=== PATIENT | female | born 1970 | race Caucasian/White ===

== ENCOUNTER 2021-10-01 14:48 | Emergency (ER) | payer OTHER ==
[2021-10-01 15:00] VITALS: BP 140/125
--- NOTE | 2021-10-01 15:27 | ED Physician Documentation ---
History of Present Illness - Stated complaint Stated Complaint: DIZZY,NUMBNESS,COUGH - Chief complaint Chief Complaint: Cardiac - Additonal information Additional information: 51-year-old female presents to the emergency department for evaluation of what she describes as a chronic cough that has been ongoing for 2-3 months as well as 'angina." She states that she has frequent substernal chest pain that radiates to her left arm and causes left arm numbness. She reports that about 5 years ago she had a stress test when in [place] but does not result know the results however she believes that it did not show anything wrong. Patient reports that she has a productive cough. Unsure if it is worse at night or when laying flat. She does not have any fevers. No pleuritic component. denies fevers, congestion. Patient is quite anxious appearing. She declines to answer whether she is vaccinated for COVID-19. She states that she is "healthy as a horse." Has no history of high blood pressure or diabetes and takes no routinely prescribed medications. She also states that her lower legs/feet have been swollen for many months. She reports her primary doctor is in [facility] but she is never seen her. Review of Systems Constitutional: denies: Fever, Chills, Myalgias Eyes: reports: Reviewed and negative Ears: reports: Reviewed and negative Nose: denies: Congestion Throat: reports: Reviewed and negative Cardiac: reports: Chest pain / pressure, Pedal edema. denies: Palpitations, Calf pain Respiratory: reports: Cough. denies: Dyspnea, Hemoptysis, Wheezing GI: reports: Abdominal Pain, Reviewed and negative : reports: Reviewed and negative Skin: reports: Reviewed and negative Musculoskeletal: reports: Reviewed and negative Neurologic: reports: Numbness PD PAST MEDICAL HISTORY - Allergies Allergies/Adverse Reactions: Allergies Allergy/AdvReac Type Severity Reaction Status Date / Time No Known Drug Allergies Allergy Verified 10/01/21 15:00 PD ED PE NORMAL - General General: Alert and oriented X 3, No acute distress, Well developed/nourished - HEENT HEENT: Atraumatic, Ears normal, Moist mucous membranes, Pharynx benign - Neck Neck: Supple, no meningeal sign, No adenopathy - Cardiac Cardiac: RRR, No murmur, Strong equal pulses, Other (Mild bilateral pedal edema.) - Respiratory Respiratory: No respiratory distress, Clear bilaterally - Abdomen Abdomen: Normal bowel sounds, Soft, Non tender - Back Back: No CVA TTP, No spinal TTP - Derm Derm: Normal color, Warm and dry, No rash - Extremities Extremities: No deformity, No tenderness to palpate, Normal ROM s pain - Neuro Neuro: Alert and oriented X 3, 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 No: Prolonged QT QRS: Low voltage Ischemia: Q waves (V3-5) Compare to prior EKG: Old EKG unavailable Computer interpretation: Agree with computer - Labs Labs: Laboratory Tests 10/01/21 10/01/21 10/01/21 15:30 15:30 15:30 WBC 7.2 RBC 4.57 Hgb 13.8 Hct 41.1 MCV 89.9 MCH 30.2 MCHC 33.6 RDW 13.0 Plt Count 201 MPV 10.1 Neut # (Auto) 3.9 Lymph # (Auto) 2.6 [place] # (Auto) 0.6 Eos # (Auto) 0.1 Baso # (Auto) 0.1 Absolute Nucleated RBC 0.00 Nucleated RBC % 0.0 Sodium 136 Potassium 3.8 Chloride 103 Carbon Dioxide 23 Anion Gap 10.0 BUN 14 Creatinine 0.6 Estimated GFR (MDRD) 105 Glucose 120 H Calcium 9.6 Total Bilirubin 1.0 AST 21 ALT 17 Alkaline Phosphatase 42 Troponin I High Sens 2.5 B-Natriuretic Peptide Total Protein 7.6 Albumin 4.3 Globulin 3.3 Albumin/Globulin Ratio 1.3 Lipase 43 10/01/21 15:30 WBC RBC Hgb Hct MCV MCH MCHC RDW Plt Count MPV Neut # (Auto) Lymph # (Auto) [place] # (Auto) Eos # (Auto) Baso # (Auto) Absolute Nucleated RBC Nucleated RBC % Sodium Potassium Chloride Carbon Dioxide Anion Gap BUN Creatinine Estimated GFR (MDRD) Glucose Calcium Total Bilirubin AST ALT Alkaline Phosphatase Troponin I High Sens B-Natriuretic Peptide 12 Total Protein Albumin Globulin Albumin/Globulin Ratio Lipase - Rads (name of study) cxr Radiology: Final report received (No acute cardiopulmonary process) PD MEDICAL DECISION MAKING - ED course Complexity details: reviewed results, re-evaluated patient, d/w patient ED course: 51-year-old female presents emergency department for evaluation of substernal chest pain with radiation to the left arm that is been ongoing for a number of days as well as a productive cough for 2 to 3 months. She is also reporting feeling dizzy. However no fainting spells. No headache. No focal weakness. She states that the symptoms have been ongoing for a few months since she was seen at [facility]. Patient D. Clines to answer whether or not she has vaccinated for COVID-19. She does report that she had 2 stress tests for angina when she was in [place]. Uncertain of the results. Today she presents to the ER quite anxious appearing. However cardiopulmonary auscultation is unrevealing. No crackles or wheeze. Room air saturations are 100%. Screening EKG is nonischemic. There are Q waves in the anterior leads. No previous for comparison. She is noted to have very mild pedal edema bilaterally. Screening labs showed no worrisome findings. No anemia. Her troponin and BNP are also negative. Heart score 2 Unclear the etiology of the chronic cough. I discussed with patient that postnasal drip, allergies as well as silent acid reflux could be a common contributor in the setting of a normal x-ray but she does not feel that these are likely causes. I discussed that though her EKG and troponin today are nonischemic given the history of previous stress testing she may benefit from a repeat of this in the upcoming few months. I did offer the patient albuterol inhaler but she declines to take this medication as she is not wheezing and does not want any medicines that would increase her heart rate. Emergent return precautions were discussed for worsening symptoms. Departure - Departure Disposition: 01 Home, Self Care Clinical Impression: Cough, Dizziness of unknown etiology Chest pain Qualifiers: Chest pain type: unspecified Qualified Code(s): R07.9 - Chest pain, unspecified Condition: Stable Record reviewed to determine appropriate education?: Yes Instructions: ED Chest Pain [facility] Comments: Jes you were seen today in the emergency department for cough that you have had for about 2 to 3 months, chest pain with radiation to your arm as well as dizziness. Your screening labs are essentially normal. Your BNP is not elevated. Your troponin is normal. Your EKG shows Q waves in some of the anterior leads. This can be a sign of previous heart attack. However we do not have an old EKG for comparison. With your history I do recommend you follow closely with your primary care sonia spain. You may benefit from repeat referral to a agricultural extension specialist for echocardiogram or stress test. If at any point you develop worsening symptoms, have fainting episodes or severe shortness of breath you should return immediately to the ER for a second evaluation.
[2021-10-01 15:36] LABS: BASOPHILS # (AUTO) 0.1 10^3/uL (0.0-0.1); BASOPHILS % (AUTO) 0.7 %; EOSINOPHILS # (AUTO) 0.1 10^3/uL (0.0-0.7); EOSINOPHILS % (AUTO) 1.8 %; HCT - HEMATOCRIT 41.1 % (37.0-47.0); HGB - HEMOGLOBIN 13.8 g/dL (12.0-16.0); LYMPHOCYTES # (AUTO) 2.6 10^3/uL (1.5-3.5); MEAN CORPUSCULAR HEMOGLOBIN 30.2 pg (27.0-31.0); MEAN CORPUSCULAR HGB CONC 33.6 g/dL (32.0-36.0); MEAN CORPUSCULAR VOLUME 89.9 fL (81.0-99.0); MEAN PLATELET VOLUME 10.1 fL (7.9-10.8); MONOCYTES # (AUTO) 0.6 10^3/uL (0.0-1.0); MONOCYTES % (AUTO) 7.7 %; NEUTROPHILS # (AUTO) 3.9 10^3/uL (1.5-6.6); NEUTROPHILS % (AUTO) 53.7 %; PLT - PLATELET COUNT 201 10^3/uL (130-450); RED BLOOD COUNT 4.57 10^6/uL (4.20-5.40); WHITE BLOOD COUNT 7.2 x10^3/uL (4.8-10.8)
--- NOTE | 2021-10-01 15:51 | XRAY Report ---
PROCEDURE: Chest 1 View X-Ray INDICATIONS: Chest Pain TECHNIQUE: One view of the chest was acquired. COMPARISON: None FINDINGS: Surgical changes and devices: None. Lungs and pleura: No pleural effusions or pneumothorax. Lungs are clear. Mediastinum: Mediastinal contours appear normal. Heart size is normal. Bones and chest wall: No suspicious bony lesions. Overlying soft tissues appear unremarkable. IMPRESSION: No acute process. Reviewed by: Meme Fung MD on 10/01/2021 3:49 PM PDT Approved by: Meme Fung MD on 10/01/2021 3:49 PM PDT Station ID: [id number]
[2021-10-01 15:54] LABS: ALBUMIN 4.3 g/dL (3.2-5.5); ALBUMIN/GLOBULIN RATIO 1.3 (1.0-2.2); CALCIUM 9.6 mg/dL (8.5-10.3); CREATININE 0.6 mg/dL (0.4-1.0); POTASSIUM 3.8 mmol/L (3.5-5.0); TOTAL PROTEIN 7.6 g/dL (6.7-8.2)
== END 2021-10-01 16:40 | disposition home or self-care (01) ==
LOC: ED 14:48
DX: R42 Dizziness and giddiness (principal); R05.9 Cough, unspecified
CPT/HCPCS: 36415; 80053; 83690; 83880; 84484; 85025; 93005; 99284

== ENCOUNTER 2021-10-16 11:45 | Emergency (ER) | payer OTHER ==
--- NOTE | 2021-10-16 12:28 | XRAY Report ---
PROCEDURE: Chest 1 View X-Ray INDICATIONS: Chest pain TECHNIQUE: One view of the chest was acquired. COMPARISON: 10/01/2021 FINDINGS: Surgical changes and devices: None. Lungs and pleura: No pleural effusions or pneumothorax. Lungs are clear. Mediastinum: Mediastinal contours appear normal. Heart size is normal. Bones and chest wall: No suspicious bony lesions. Overlying soft tissues appear unremarkable. IMPRESSION: No acute cardiopulmonary process demonstrated radiographically. Reviewed by: Niles Brown MD on 10/16/2021 12:27 PM PDT Approved by: Niles Brown MD on 10/16/2021 12:27 PM PDT Station ID: [id number]
[2021-10-16 12:40] LABS: BASOPHILS # (AUTO) 0.1 10^3/uL (0.0-0.1); BASOPHILS % (AUTO) 0.8 %; EOSINOPHILS # (AUTO) 0.1 10^3/uL (0.0-0.7); EOSINOPHILS % (AUTO) 1.6 %; HCT - HEMATOCRIT 41.2 % (37.0-47.0); LYMPHOCYTES # (AUTO) 2.3 10^3/uL (1.5-3.5); LYMPHOCYTES % (AUTO) 36.4 %; MEAN CORPUSCULAR HEMOGLOBIN 30.4 pg (27.0-31.0); MEAN CORPUSCULAR VOLUME 89.4 fL (81.0-99.0); MEAN PLATELET VOLUME 9.8 fL (7.9-10.8); MONOCYTES # (AUTO) 0.3 10^3/uL (0.0-1.0); MONOCYTES % (AUTO) 5.4 %; NEUTROPHILS # (AUTO) 3.5 10^3/uL (1.5-6.6); NEUTROPHILS % (AUTO) 55.6 %; PLT - PLATELET COUNT 234 10^3/uL (130-450); RED BLOOD COUNT 4.61 10^6/uL (4.20-5.40); RED CELL DISTRIBUTION WIDTH 12.8 % (12.0-15.0); WHITE BLOOD COUNT 6.4 x10^3/uL (4.8-10.8)
[2021-10-16 12:51] LABS: ALBUMIN 4.4 g/dL (3.2-5.5); ALBUMIN/GLOBULIN RATIO 1.4 (1.0-2.2); CALCIUM 9.5 mg/dL (8.5-10.3); CREATININE 0.6 mg/dL (0.4-1.0); TOTAL PROTEIN 7.6 g/dL (6.7-8.2)
[2021-10-16 13:07] VITALS: BP 102/71
[2021-10-16] MEDS ORDERED: LIDOCAINE VISCOUS 2% 15 ML UDC MM STA (13:41)
[2021-10-16] MEDS ORDERED: MAG HYDROX/AL HYDROX/SIMETH 30 ML UDC PO STA (13:41)
[2021-10-16] MEDS ORDERED: SUCRALFATE 1 GM/10 ML UDC PO STA (13:41)
[2021-10-16] MEDS ORDERED: ACETAMINOPHEN 325 MG TABLET PO STA (13:42)
--- NOTE | 2021-10-16 14:16 | ED Physician Documentation ---
History of Present Illness - Stated complaint Stated Complaint: CHEST CRAMPING - Chief complaint Chief Complaint: Cardiac - History obtained from History obtained from: Patient - History of Present Illness Timing: Today Pain level max: 2 Pain level now: 1 - Additonal information Additional information: Patient is a 51-year-old female who presents to the emergency department stating she Accidentally took her vitamins plus the vitamins of her significant other. She states that after that she had a slight cramping in the left upper chest, rated as a 1 or 2 out of 10. She states that this is improving now. Nothing makes it better or worse. No fever. No chills. No cough. No congestion. No abdominal pain. No nausea or vomiting. Nothing makes it better or worse. This started about 3 hours prior to arrival. Review of Systems Constitutional: denies: Fever, Chills Cardiac: denies: Palpitations Respiratory: denies: Dyspnea, Cough GI: denies: Vomiting, Diarrhea Skin: denies: Rash Musculoskeletal: denies: Neck pain, Back pain Neurologic: denies: Headache PD PAST MEDICAL HISTORY - Past Medical History Past Medical History: Yes Psych: Anxiety - Past Surgical History Past Surgical History: No - Present Medications Home Medications: Ambulatory Orders Medication Instructions Recorded Confirmed No Known Home Medications 10/16/21 10/16/21 - Allergies Allergies/Adverse Reactions: Allergies Allergy/AdvReac Type Severity Reaction Status Date / Time No Known Drug Allergies Allergy Verified 10/16/21 12:00 - Social History Does the pt smoke?: No Smoking Status: Never smoker Does the pt drink ETOH?: No Does the pt have substance abuse?: Yes Substance Use and Type: Marijuana PD ED PE NORMAL - Vitals Vital signs reviewed: Yes - General General: Alert and oriented X 3, No acute distress - HEENT HEENT: Moist mucous membranes - Neck Neck: Supple, no meningeal sign - Cardiac Cardiac: RRR, Strong equal pulses - Respiratory Respiratory: No respiratory distress, Clear bilaterally - Abdomen Abdomen: Soft, Non tender, Non distended - Derm Derm: Warm and dry - Extremities Extremities: No edema, No calf tenderness / cord - Neuro Neuro: Alert and oriented X 3 - Psych Psych: Normal mood, Normal affect Results - Vitals Vitals: Vital Signs - 24 hr 10/16/21 10/16/21 12:01 13:04 Temperature 36.8 C Heart Rate 102 H 76 Respiratory 18 10 L Rate Blood Pressure 132/88 H 102/71 O2 Saturation 98 98 Oxygen O2 Source Room air - EKG (time done) 1211 Rate: Rate (enter#) (91) Rhythm: NSR [place]: Normal Intervals: Normal [place] QRS: Normal Ischemia: Normal ST segments, Q waves (III, aVF) - Labs Labs: Laboratory Tests 10/16/21 10/16/21 10/16/21 12:31 12:31 12:31 WBC 6.4 RBC 4.61 Hgb 14.0 Hct 41.2 MCV 89.4 MCH 30.4 MCHC 34.0 RDW 12.8 Plt Count 234 MPV 9.8 Neut # (Auto) 3.5 Lymph # (Auto) 2.3 [place] # (Auto) 0.3 Eos # (Auto) 0.1 Baso # (Auto) 0.1 Absolute Nucleated RBC 0.00 Nucleated RBC % 0.0 Sodium 138 Potassium 4.0 Chloride 106 Carbon Dioxide 21 Anion Gap 11.0 BUN 12 Creatinine 0.6 Estimated GFR (MDRD) 105 Glucose 104 H Calcium 9.5 Total Bilirubin 1.0 AST 21 ALT 18 Alkaline Phosphatase 46 Troponin I High Sens < 2.3 L Total Protein 7.6 Albumin 4.4 Globulin 3.2 Albumin/Globulin Ratio 1.4 Lipase 43 - Rads (name of study) cxr Radiology: Final report received, EMP read contemporaneously, See rad report (No acute abnormality) PD MEDICAL DECISION MAKING - ED course Complexity details: reviewed results, re-evaluated patient, considered differential (No ST elevation [place], no aortic dissection, no PE, no tension pneumothorax, no aortic aneurysm), d/w patient ED course: 51-year-old female with left-sided upper chest pain described as cramping after accidentally taking her 's vitamins. Resolved with GI cocktail and Tylenol. Negative troponin, high-sensitivity. No acute findings on x-ray or EKG. Patient is asymptomatic. We will have her follow-up with her doctor for further care. Patient counseled regarding signs and symptoms for which I believe and urgent re-evaluation would be necessary. Patient with good understanding of and agreement to plan and is comfortable going home at this time This document was made in part using voice recognition software. While efforts are made to proofread this document, sound alike and grammatical errors may occur. Departure - Departure Disposition: 01 Home, Self Care Clinical Impression: Chest pain Qualifiers: Chest pain type: unspecified Qualified Code(s): R07.9 - Chest pain, unspecified Condition: Good Instructions: ED Chest Pain NonCardiac Follow-Up: your,doctor in 1 week [Other] Comments: Your testing does not show any acute abnormalities today. Please follow-up with your doctor for further care. Please return if you worsen. Discharge Date/Time: 10/16/21 14:32
== END 2021-10-16 14:32 | disposition home or self-care (01) ==
LOC: ED 11:45
DX: R07.9 Chest pain, unspecified (principal)
CPT/HCPCS: 36415; 71045; 80053; 83690; 84484; 85025; 93005; 99284; A9270

== ENCOUNTER → 2022-04-07 | Outpatient (CLI) | payer OTHER | END | disposition left against medical advice (07) | LOC: EMS 11:17 | DX: M79.10 Myalgia, unspecified site (principal); R51.9 Headache, unspecified; R06.02 Shortness of breath ==

== ENCOUNTER → 2022-04-07 | Outpatient (CLI) | payer OTHER | END | disposition short-term general hospital (02) | LOC: EMS 12:05 | DX: R52 Pain, unspecified (principal); R11.0 Nausea; F41.9 Anxiety disorder, unspecified | CPT/HCPCS: A0425; A0429 ==